=== PATIENT | female | born 1990 | race Caucasian/White ===

== ENCOUNTER 2016-05-25 23:49 | Emergency (ER) | payer OTHER ==
--- NOTE | ~2016-05-25 | EKG ---
PATIENT: JAZMIN BEAN UNIT #: [id number] Ventricular Rate: 121 BPM Atrial Rate: 121 BPM P-R Interval: 130 ms QRS Duration: 80 ms Q-T Interval: 332 ms QTC Calculation(Bezet): 471 ms P [place]: 39 degrees Calculated R [place]: 46 degrees Calculated T [place]: 65 degrees Diagnosis Line: Sinus tachycardia with Premature atrial complexes Diagnosis Line: T wave abnormality, consider inferior ischemia Diagnosis Line: Abnormal ECG Diagnosis Line: When compared with ECG of 14-SEP-2015 05:40, Diagnosis Line: Premature atrial complexes are now Present Diagnosis Line: T wave inversion now evident in Inferior leads Diagnosis Line: Inverted T waves have replaced nonspecific T wave Diagnosis Line: abnormality in Lateral leads Diagnosis Line: Confirmed by JULIO PRESLEY MD ([id number]) on 05/27/2016 Diagnosis Line: 2:15:54 PM INTERPRETING MD: SAKINA MOON
--- NOTE | ~2016-05-25 | CR72 ---
[facility] A Service of [facility] RADIOLOGY TEXT RESULTS PATIENT: JAZMIN BEAN LOCATION: [facility] : 91 UNIT #: [id number] AGE: [address]: Lakeisha Ray MD SEX: F ORDER DR: [id number] [facility] [address] [place], [place] [address] [id number] MR#: [id number] Acc #: [id number] NAME: JAZMIN BEAN : 1990 SEX: F STUDY DATE/TIME: 05/25/2016 23:36 UNIT: [facility] ROOM: STUDY DESCRIPTION: CR Chest Single View Portable Attending Physician: Lakeisha Ray M.D. Ordering Physician: Lakeisha Ray M.D. Primary Care Physician: Inderjit Molina M.D. MEDICAL IMAGING REPORT This report is preliminary unless electronic signature is present EXAM Frontal chest 05/25/2016 INDICATION 26-year-old female with cough, dizzy, weak for 5 days, diabetes. TECHNIQUE Frontal chest compared with 09/11/2015. FINDINGS Cardiac silhouette unremarkable. Vascularity is normal. There is no dense consolidation or effusion on either side. No pneumothorax. Low lung volumes with some degree of bronchovascular crowding and probable atelectasis in the lower lung zone on the right. IMPRESSION Low lung volumes with some probable atelectatic change in the right greater than left lung bases but no effusion or dense consolidation. Dictated by... Júnior Mckinley M.D. THIS IS AN ELECTRONICALLY VERIFIED REPORT Júnior Mckinley M.D. at 05/26/2016 6:24 AM CHRIS/tom TD: 05/26/2016 06:08 JOB #: [id number] MEDICAL IMAGING REPORT Page 1 of 1 COPY
[2016-05-25 21:08] LABS: BASOPHIL# 0.1 X10e3 (0-0.3); BASOPHIL% 0.5 % (0-2.5); EOSINOPHIL# 0.4 X10e3 (0-0.7); EOSINOPHIL% 3.2 % (0.0-7.0); HEMOGLOBIN 9.2 gm/dL (12.0-16.0); LYMPHOCYTE# 2.1 X10e3 (1.0-3.5); LYMPHOCYTE% 18.7 % (17.0-45.0); MEAN CELL VOLUME 61.9 FL (83-96); MEAN CORPUSCULAR HEMOGLOBIN 18.3 PG (28-34); MEAN CORPUSCULAR HGB CONC 29.6 g/dL (30-36); MONOCYTE# 1.3 X10e3 (0-1.0); MONOCYTE% 11.7 % (3.0-12.0); NEUTROPHIL# 7.5 X10e3 (1.5-7.1); NEUTROPHIL% 65.9 % (40-75); PLATELET COUNT 257 X10e3 (140-420); RED BLOOD COUNT 5.01 X10e (3.90-5.30); RED CELL DISTRIBUTION WIDTH 21.9 % (11.0-15.5); WHITE BLOOD COUNT 11.4 X10e3 (4.0-10.5)
[2016-05-25 21:09] LABS: DIFF IND YES
[2016-05-25 21:30] LABS: ALBUMIN SERUM 3.8 g/dL (3.5-5.0); BILIRUBIN,TOTAL 0.5 mg/dL (0.2-2.0); CALCIUM SERUM 9.8 mg/dL (8.4-10.2); CREATININE SERUM 0.5 mg/dL (0.6-1.4); GLOM FILT RATE Estimated 134.5 mL/min (>60); PROTEIN TOTAL SERUM 8.7 g/dL (6.0-8.3)
[2016-05-25 21:32] LABS: BILIRUBIN,INDIRECT 0.4 mg/dL (0.0-0.9); POTASSIUM 2.7 mmol/L (3.5-5.1)
[2016-05-25 21:33] LABS: BILIRUBIN, DIRECT 0.1 mg/dL (0.0-0.2)
[2016-05-25 22:11] LABS: PLATELET ESTIMATE NORMAL (NORMAL)
[2016-05-25 22:12] LABS: HYPOCHROMIA SL; POIKILOCYTOSIS SL; TEAR DROP CELLS PRESENT
[2016-05-25 23:05] LABS: ARTERIAL BLD GAS O2 SATURATION 94.9 % (90.0-100.0); ARTERIAL BLOOD GAS CARBOXY HB 1.1 %sat (0.0-9.0); ARTERIAL BLOOD GAS MET HB 0.8 %sat (0.0-2.0); ARTERIAL BLOOD GAS PCO2 31.8 mmHg (35.0-45.0); ARTERIAL BLOOD GAS PO2 80.7 mmHg (80.0-100); ARTERIAL BLOOD GAS pH 7.428 (7.350-7.450)
[2016-05-25 23:06] LABS: ARTERIAL BLOOD GAS ART SITE RIGHT BRACHIAL; ARTERIAL DRAW? YES
[~2016-05-25 23:49] MED LIST: ALBUTEROL17 GM INH; APIDRA (NF100 UNITS/ SUBQ; APIDRA100 U/ML SUBQ; BACTRIM DS TABL1 TA1 PO; BACTRIM DS TABL1 TAB PO; BACTROBAN15 GM TOP; CLEOCIN PO; HUMALOG100 U/M2; HUMALOG100 U/ML; HUMALOG100 U/ML SUBQ; IBUPROFEN PO; LANTUS100 U/ML INJ; LANTUS100 U/ML SUBQ; LEVEMIR SUBQ; LEVEMIR100 U/ML SQ; LEVEMIR100 UNITS/ SQ; LEVEMIR100 UNITS/ SUBQ; MAG-OX 400400 MG PO; MEDROL4 MG/DOSE-; METOPROLOL TAR25 MG PO; NAPROSYN500 MG PO; NOVOLIN N100 U/M1 SQ; NOVOLIN N100 U/ML INJ; NOVOLOG100 U/M1 SQ; NOVOLOG100 U/ML INJ; NOVOLOG100 U/ML SUBQ; NOVOLOG100 UNITS/ INJ; NOVOLOG100 UNITS/ SUBQ; TUMS500 MG PO; [UNRECOGNIZED DRUG - OTHER] PO
[2016-05-26 00:28] LABS: URINE SOURCE CLEAN CATCH
[2016-05-26 00:31] LABS: URINE APPEARANCE CLOUDY; URINE BILIRUBIN NEG (NEG); URINE BLOOD 1+ (NEG); URINE COLOR YELLOW; URINE GLUCOSE 100 MG/DL (NEG); URINE KETONE TRACE (NEG); URINE LEUKOCYTE ESTERASE TRACE (NEG); URINE NITRATE NEG (NEG); URINE PROTEIN 2+ (NEG); URINE SPECIFIC GRAVITY 1.023 (1.003-1.035)
[2016-05-26 00:34] LABS: URBCS1 AUWI 0-2 /[HPF] (0-2); URINE BACTERIA AUWI NEG (NEGATIVE); URINE SQUAMOUS EPITHELIAL CELL OCC /[HPF]
[2016-05-26 00:45] LABS: CULTURE INDICATED? NO
[2016-05-26 00:46] LABS: URINE CRYSTALS CALCIUM OXALATE /[HPF]
[2016-05-26 02:57] LABS: INFLUENZA A NEG (NEG); INFLUENZA B NEG (NEG)
== END 2016-05-26 07:44 | disposition left against medical advice (07) ==
LOC: CED 23:49
PROVIDERS: Emergency Medicine
DX: E11.65 Type 2 diabetes mellitus with hyperglycemia (principal); E86.0 Dehydration; Z91.018 Allergy to other foods
CPT/HCPCS: 36415; 36600; 71010; 80048; 80076; 81003; 82803; 82947; 84703; 85025; 85379; 87040; 87804; 93005; 96361; 96374; 99284; J2405

== ENCOUNTER 2016-06-04 15:53 | Emergency (ER) | payer OTHER ==
--- NOTE | ~2016-06-04 | EKG ---
PATIENT: JAZMIN BEAN UNIT #: [id number] Ventricular Rate: 124 BPM Atrial Rate: 124 BPM P-R Interval: 120 ms QRS Duration: 72 ms Q-T Interval: 420 ms QTC Calculation(Bezet): 603 ms P [place]: 53 degrees Calculated R [place]: 49 degrees Calculated T [place]: 50 degrees Diagnosis Line: Sinus tachycardia Diagnosis Line: Nonspecific T wave abnormality Diagnosis Line: Abnormal ECG Diagnosis Line: When compared with ECG of 25-MAY-2016 23:55, Diagnosis Line: Premature atrial complexes are no longer Present Diagnosis Line: Nonspecific T wave abnormality has replaced Diagnosis Line: inverted T waves in Lateral leads Diagnosis Line: Confirmed by BERNA KENNEY MD ([id number]) on 06/05/2016 Diagnosis Line: 4:38:03 PM INTERPRETING MD: PABLITO MOON
--- NOTE | ~2016-06-04 | CR72 ---
[facility] A Service of [facility] RADIOLOGY TEXT RESULTS PATIENT: JAZMIN BEAN LOCATION: [facility] UNIT : 91 UNIT #: [id number] AGE: [address]: Elijah Pardo MD SEX: F ORDER DR: [id number] [facility] [address] [place], [place] [address] [id number] E MR#: [id number] Acc #: [id number] NAME: JAZMIN BEAN : 1990 SEX: F STUDY DATE/TIME: 06/04/2016 15:58 UNIT: [facility] ROOM: STUDY DESCRIPTION: CR Chest Single View Portable Attending Physician: Elijah Pardo M.D. Ordering Physician: Elijah Pardo M.D. Primary Care Physician: Inderjit Molina M.D. MEDICAL IMAGING REPORT This report is preliminary unless electronic signature is present EXAM Portable chest. DATE OF EXAM 06/04/2016 HISTORY Shortness of air and hypotension today. FINDINGS A single AP portable view of the chest shows both lungs to be clear. The heart is normal in size. The mediastinal contour is normal. No significant bone abnormalities are seen. IMPRESSION Negative/normal portable chest. Dictated by... Ferdinand Kaur M.D. THIS IS AN ELECTRONICALLY VERIFIED REPORT Ferdinand Kaur M.D. at 06/04/2016 11:23 PM DFAngeline/seamus TD: 06/04/2016 18:44 JOB #: [id number] MEDICAL IMAGING REPORT [facility] A Service of [facility] RADIOLOGY TEXT RESULTS PATIENT: JAZMIN BEAN LOCATION: [facility] UNIT : 91 UNIT #: [id number] AGE: [address]: Elijah Pardo MD SEX: F ORDER DR: Page 1 of 1 COPY
[2016-06-04 16:41] LABS: ARTERIAL BLD GAS O2 SATURATION 94.2 % (90.0-100.0); ARTERIAL BLOOD GAS CARBOXY HB 1.1 %sat (0.0-9.0); ARTERIAL BLOOD GAS MET HB 0.8 %sat (0.0-2.0); ARTERIAL BLOOD GAS PCO2 37.7 mmHg (35.0-45.0); ARTERIAL BLOOD GAS pH 7.395 (7.350-7.450)
[2016-06-04 16:43] LABS: ARTERIAL BLOOD GAS ALLEN TEST NORMAL; ARTERIAL BLOOD GAS ART SITE RIGHT RADIAL; ARTERIAL BLOOD GAS DELIVERY ROOM AIR; ARTERIAL DRAW? YES
[2016-06-04 17:42] LABS: BASOPHIL# 0.2 X10e3 (0-0.3); HEMATOCRIT 31.8 % (35.0-45.0); HEMOGLOBIN 9.2 gm/dL (12.0-16.0); LYMPHOCYTE# 1.1 X10e3 (1.0-3.5); MEAN CELL VOLUME 62.6 FL (83-96); MEAN CORPUSCULAR HGB CONC 28.8 g/dL (30-36); MEAN PLATELET VOLUME 8.3 FL (6.5-11.5); MONOCYTE# 0.9 X10e3 (0-1.0); MONOCYTE% 4.1 % (3.0-12.0); NEUTROPHIL# 19.7 X10e3 (1.5-7.1); NEUTROPHIL% 89.9 % (40-75); PLATELET COUNT 468 X10e3 (140-420); RED BLOOD COUNT 5.08 X10e (3.90-5.30); RED CELL DISTRIBUTION WIDTH 22.3 % (11.0-15.5); WHITE BLOOD COUNT 21.9 X10e3 (4.0-10.5)
[2016-06-04 17:43] LABS: DIFF IND YES
[2016-06-04 17:47] LABS: POC - CKMB <1.0 ng/mL (0.0-7.9); POC - TROPONIN <0.05 ng/mL (<=0.05)
[2016-06-04 17:53] LABS: URINE SOURCE CLEAN CATCH
[2016-06-04 18:01] LABS: URINE APPEARANCE CLOUDY; URINE BILIRUBIN NEG (NEG); URINE BLOOD TRACE (NEG); URINE COLOR DK YELLOW; URINE GLUCOSE >1000 MG/DL (NEG); URINE KETONE 2+ (NEG); URINE LEUKOCYTE ESTERASE 1+ (NEG); URINE NITRATE NEG (NEG); URINE PROTEIN 3+ (NEG)
[2016-06-04 18:02] LABS: PLATELET ESTIMATE NORMAL (NORMAL); POIKILOCYTOSIS MOD
[2016-06-04 18:03] LABS: MICROCYTOSIS MOD
[2016-06-04 18:05] LABS: CULTURE INDICATED? YES; URINE BACTERIA AUWI 2+ (NEGATIVE); URINE SQUAMOUS EPITHELIAL CELL MOD /[HPF]; UWBCS1 AUWI 25-50 (0-5)
[2016-06-04 18:26] LABS: AMPHETAMINE NEG (NEG); BARBITURATES NEG (NEG); BENZODIAZEPINES NEG (NEG); COCAINE NEG (NEG); MARIJUANA NEG (NEG); OPIATES NEG (NEG); TRICYCLIC ANTIDEPRESSANTS NEG (NEG); U METHADONE NEG (NEG)
[2016-06-04 18:48] LABS: ALBUMIN SERUM 3.7 g/dL (3.5-5.0); ALKALINE PHOSPHATASE 171 U/L (32-92); ALT (SGPT) 10 U/L (10-40); AST (SGOT) 13 U/L (10-42); BILIRUBIN,TOTAL 0.4 mg/dL (0.2-2.0); BLOOD UREA NITROGEN 12 mg/dL (9-23); CARBON DIOXIDE 23 mmol/L (22-31); CHLORIDE 105 mmol/L (100-111); CREATININE SERUM 0.8 mg/dL (0.6-1.4); GLOM FILT RATE Estimated 102.6 mL/min (>60); GLUCOSE FASTING 68 mg/dL (70-110); POTASSIUM 3.6 mmol/L (3.5-5.1); PROTEIN TOTAL SERUM 7.9 g/dL (6.0-8.3); SODIUM 141 mmol/L (135-145)
[2016-06-04 18:49] LABS: BILIRUBIN, DIRECT <0.1 mg/dL (0.0-0.2); BILIRUBIN,INDIRECT 0.3 mg/dL (0.0-0.9)
== END 2016-06-04 20:04 | disposition home or self-care (01) ==
LOC: CED 15:53
PROVIDERS: Emergency Medicine
DX: D72.829 Elevated white blood cell count, unspecified (principal); E86.0 Dehydration; E11.9 Type 2 diabetes mellitus without complications; F17.210 Nicotine dependence, cigarettes, uncomplicated; Z79.4 Long term (current) use of insulin
CPT/HCPCS: 36415; 36600; 71010; 80048; 80076; 80307; 81003; 82010; 82553; 82803; 82947; 84484; 84703; 85025; 87040; 87086; 93005; 96361; 96365; 96375; 99284; J0696; J2405

== ENCOUNTER 2016-07-21 19:10 | Inpatient (IN) | payer OTHER ==
--- NOTE | ~2016-07-21 | CR63 ---
[facility] A Service of [facility] RADIOLOGY TEXT RESULTS PATIENT: JAZMIN BEAN LOCATION: [facility] [id number] : [birth year] UNIT #: [id number] AGE: [address]: Ju Wright MD SEX: F ORDER DR: [id number] [facility] [address] [place], [place] [address] [id number] I MR#: [id number] Acc #: [id number] NAME: JAZMIN BEAN : 1990 SEX: F STUDY DATE/TIME: 07/22/2016 0:25 UNIT: [facility] ROOM: [id number] STUDY DESCRIPTION: CR Chest 2 View Attending Physician: Ju Wright M.D. Ordering Physician: Mikala Moraes A.P.R.N. Primary Care Physician: Inderjit Molina M.D. MEDICAL IMAGING REPORT This report is preliminary unless electronic signature is present EXAM Two-view chest INDICATION Diabetic ketoacidosis. Weakness. Two-day duration. FINDINGS PA and lateral views of the chest compared to 06/04/2016. Heart and mediastinal contours are unchanged. There is a moderate left pleural effusion with associated airspace opacity. There is a small right pleural effusion. IMPRESSION Moderate left pleural effusion and small right pleural effusion. Dictated by... Angel Pascual M.D. THIS IS AN ELECTRONICALLY VERIFIED REPORT Angel Pascual M.D. at 07/22/2016 2:13 AM DENISE/luciana TD: 07/22/2016 01:09 JOB #: [id number] MEDICAL IMAGING REPORT Page 1 of 1 COPY
--- NOTE | ~2016-07-21 | CO ---
Unit #: [id number] #: [id number] Patient: JAZMIN BEAN [id number] [address] [place], [place] [address] [id number] I MR#: [id number] NAME: JAZMIN BEAN ROOM: [facility] Age: 26 Sex: F Admission Date: 07/21/2016 : 1990 Attending Physician: Ju Wright M.D. Primary Care Physician: Inderjit Molina M.D. Consultation Date: 07/22/2016 CONSULTATION REPORT REASON FOR CONSULTATION Uncontrolled type 1 diabetes mellitus. HISTORY OF PRESENT ILLNESS This is a 26-year-old female with history of type 1 diabetes mellitus since the age of 6 years, history of diabetic ketoacidosis in the past. She came to the emergency room for not feeling well and high blood sugars. On her evaluation in the emergency room, she had blood sugars above 450. She had some ketones and she was dehydrated with hyponatremia, sodium of 130, and hemoglobin 9 with anemia. She was admitted to the unit bed and started on insulin drip. I have been asked to see the patient for further management. REVIEW OF SYSTEMS A 12-point review of systems was completed and is unremarkable except as noted in the HPI. The patient declined any nausea, vomiting, abdominal pain, diarrhea, bleeding per stool, or hematemesis. ALLERGIES None known. MEDICATIONS Lantus 15 units at bedtime and NovoLog 20 each meal. FAMILY HISTORY Noncontributory. SOCIAL HISTORY Declines any. PHYSICAL EXAMINATION GENERAL: She is lean and thin, awake, alert, oriented to time, place, and person. VITAL SIGNS: Temperature 97.9, pulse 90, respirations 16, and blood pressure 145/91. HEENT: EOMI. Pupils are equally reactive to light. NECK: Supple. No thyromegaly noted. CHEST: Good air entry. CVS: Regular rhythm. No murmurs. ABDOMEN: Soft, nontender. Bowel sounds positive. EXTREMITIES: No edema. Ulcers are noted. DIAGNOSTIC STUDIES LABORATORY RESULTS: Reviewed. Sodium is 137, potassium 3.3, chloride is Unit #: [id number] #: [id number] Patient: JAZMIN BEAN 103, CO2 is 26, calcium 8.2, albumin is low at 2.9. A1c last one was 10.9 on 07/21/2016. Positive ketones. ASSESSMENT 1. Type 1 diabetes mellitus, uncontrolled. 2. Microcytic anemia. 3. Hypokalemia. 4. Dehydration, improved. PLAN The patient's blood sugars have significantly improved. She has been tolerating the liquids very well. We will discontinue insulin drip. Start Levemir 10 units subcu b.i.d., NovoLog 5 units each meal with supplemental insulin 1 unit for every 50 above 150. Accu-Cheks a.c. and h.s. Discontinue insulin drip and IV fluids. Advance diet. Thanks again for consultation. Dictated by... Pooja Johnston/celena TD: 07/22/2016 23:10 JOB #: [id number] CONSULTATION REPORT Page 1 of 1 X Drew Diaz MD X CONSULTATION REPORT
--- NOTE | ~2016-07-21 | A ---
[facility] Nutrition Therapy DATE: 07/22/16 Patient: JAZMIN BEAN Physician: DAWNA Address: [address] Room/Bed: [address], Zip: [place] [address] Admit Date: 07/21/16 Date of : [birth year] Height: 5 5 Weight: 111 50.5 NUTRITIONAL ASSESSMENT: REASON: DKA Dx, low BMI, NPO in ICU 26 yo female admitted for DKA PMH: Type 1 DM (diagnosed at age 6), Pre-ecplampsia, HTN Anthropometrics: Ht: 65" (pt confirmed) Wt: 50.5 kg BMI: 18.5 IBW: 56.8 kg, 89% IBW Labs: BUN <5 Creat 0.3 Alb 2.9 Accuchecks 90-334 HgbA1C 10.9 Meds: Novolin, D5%, D50%, zofran I/O & Bowel function: none available, last BM 07/22 Skin Integrity: Rash BLE/ ankles Edema: none noted Estimated Nutrition Needs: Increased d/t low body weight Diet: NPO except water and diet drinks Assessment: Chart reviewed, events noted. Pt admitted for DKA, with h/o type 1 DM and previous admissions for DKA. RN reports that the pt has been admitted to the hospital three times this month for related issues, high blood sugar d/t illness. Pt presents underweight with a BMI of 18.5, and is 89% of her IBW. RD spoke with the pt and her father at bedside. Pt was drowsy at time of visit. Pt's father reports that she has lost weight, and used to weigh ~120#. Pt's admission weight is 111#, indicating ~19# weight loss (in unknown time frame). RD stressed the importance of adequate protein-energy intake, and the pt's father reports that the pt has not been receiving her food stamps. RD will discuss with RN. Pt did not feel up to diet education at this time. Per previous admission nutrition assessments for DKA, the pt has denied diet education in the past. RD informed pt that we would return for diet education. Pt is agreeable to Glucerna once diet advances, and reports that she is hungry. Dx: 1) Impaired glycemic control RT possibly food insecurity, poor dietary habits, lack of nutrition-related knowledge AEB DKA, accuchecks 90-334. 2) Unplanned weight loss RT possibly food insecurity AEB BMI 18.5, 89% IBW. Intervention: [facility] Nutrition Therapy DATE: 07/22/16 Patient: JAZMIN BEAN Physician: DAWNA Address: [address] [place] [address] Room/Bed: [address], Zip: [place] [address] Admit Date: 07/21/16 Date of : [birth year] Height: 5 5 Weight: 111 50.5 1. Consistent carbohydrate diet education once appropriate 2. Advance to CCD once insulin drip discontinued 3. Glucerna BID once diet advances Monitoring, Evaluation and Goals: 1. Improve labs; glucose, A1C 2. Oral intake; diet advancement, tolerate >50-75% of meals once diet adv 3. Weight; prevent further weight loss, promote gradual weight gain towards IBW Recommendations: 1. Once insulin drip is discontinued, advance the pt to a consistent carbohydrate diet as tolerated. 2. Glucerna (vanilla) BID for supplemental nutrition once diet advances. 3. RD to return for CCD education once appropriate. 4. Pt would benefit from seeing an outpatient RD for follow up and accounability regarding DM diet compliance. Health Departments also provide free classes. 5. Consult social services manager/ care management regarding the pt's food insecurity. Pt is no longer receiving food stamps. Pt is at mild-moderate nutritional risk. RD will follow hospital course per protocol. Respectfully, JOSEPH ROBINS RD, LD Food and Nutritional Services [facility] cc: client file
--- NOTE | ~2016-07-21 | DS ---
Unit #: [id number] #: [id number] Patient: JAZMIN BEAN [id number] [address] [place], [place] [address] [id number] I MR#: [id number] NAME: JAZMIN BEAN ROOM: 453 Age: 26 Sex: F Admission Date: 07/21/2016 : 1990 Discharge Date: 07/24/2016 Attending Physician: Ju Wright M.D. Primary Care Physician: Inderjit Molina M.D. DISCHARGE SUMMARY PRINCIPAL DISCHARGE DIAGNOSES 1. Diabetic ketoacidosis. 2. Type 1 diabetes mellitus. 3. Mixed anemia with iron deficiency and B12 deficiency. 4. Bilateral pleural effusions. 5. Bilateral lower extremity rash. LEATHER POL[employer]ER Dr. Diaz, Endocrinology. PROCEDURE Transfusion of one unit of packed RBCs on July 23, 2016. REASON FOR HOSPITALIZATION/HOSPITAL COURSE The patient is a 26-year-old white female with a history of type 1 diabetes mellitus who presented to the emergency room with bilateral lower extremity rash and DKA. Patient was admitted to the ICU. She was started on DKA protocol. Endocrinology was consulted. She was treated topically with hydrocortisone and Bactroban for the rash. She was discovered to be anemic. Upon further workup, her iron and B12 were low. Her hemoglobin fell to 7.9 on the , and she was typed, crossmatched, and transfused one unit. Stool for occult blood was ordered but not obtained during this admission. Again, her B12 and iron were low. Currently, her blood sugars are good. Her potassium is 4.9. Her magnesium is 1.5 and will be replaced per protocol prior to discharge. CBC is normal except for a hemoglobin of 9.2. Followup chest x-ray showed no change in bilateral pleural effusions. Room air O2 saturations are 99%, and I feel that it is probably likely that her low hemoglobin, as well as albumin. In any case, she will be discharged home. She will be given a dose of B12 IM prior to discharge. FOLLOWUP She is to follow up with Dr. Martines for the rash, follow up with Dr. Diaz for her diabetes, and follow up with Dr. Molina in one week. DIET She is on a constant carbohydrate diet. CURRENT MEDICATIONS 1. Tylenol 650 q.6 p.r.n. 2. Hydrocortisone apply to affected areas q.6 hours. 3. Bactroban topically b.i.d. to affected areas. 4. Benadryl 25 mg p.o. q.6 hours p.r.n. for itching. Unit #: [id number] #: [id number] Patient: JAZMIN BEAN 5. Levemir 10 units subcutaneous b.i.d. 6. NovoLog 5 units subcutaneous a.c. 7. B12 at 1000 mcg sublingual daily. 8. Ferrous gluconate 324 mg 1 p.o. b.i.d. after meals. Dictated by... Pooja Navarro/mary ellen TD: 07/24/2016 22:18 JOB #: [id number] DISCHARGE SUMMARY Page 1 of 1 X Leo Hughes MD X DISCHARGE SUMMARY
--- NOTE | ~2016-07-21 | HP ---
Unit #: [id number] #: [id number] Patient: ROSI STANFORD [id number] [address] [place], [place] [address] [id number] I MR#: [id number] NAME: ROSI STANFORD ROOM: [facility] Age: 26 Sex: F Admission Date: 07/21/2016 : 1990 Attending Physician: Ju Wright M.D. Primary Care Physician: Inderjit Molina M.D. HISTORY AND PHYSICAL ADMISSION DIAGNOSES 1. Diabetic ketoacidosis. 2. Insulin dependent diabetes. 3. Anemia. 4. History of asthma. 5. Lower extremity dermatitis. 6. Questionable methicillin-resistant Staphylococcus aureus infection. HISTORY OF PRESENT ILLNESS Ms. Rosi Stanford is a 26-year-old female well known to us secondary to prior similar hospitalizations for DKA. This time around patient also was seen in the emergency room secondary to a right lower extremity rash; however, initial evaluation found her in DKA. Patient was started on the IV insulin per DKA protocol, admitted to ICU. She is status post evaluation per Dr. Diaz and she is scheduled to be off of the insulin drip here pretty soon since her gap is closing and last BMP showed her bicarb at 26. She has no other complaints, states that she had noticed the rash two to three days ago, denies any fever or chills, denies any shortness of air, dyspnea, headache, dizziness, chest pain, syncope, presyncope, nausea, vomiting, diarrhea or abdominal pain so 12-point review of systems on this patient is basically negative except as above. PAST MEDICAL HISTORY Past medical history is significant for history of insulin dependent diabetes. PAST SURGICAL HISTORY Past surgical history is significant for I/D for the boil and superficial skin infection, also history of . HOME MEDICATIONS She was taking Humalog and Lantus at home. ALLERGIES No known drug allergies. SOCIAL HISTORY She is an active smoker, denies any illicit drugs or alcohol. FAMILY HISTORY Unremarkable. PHYSICAL EXAMINATION Unit #: [id number] #: [id number] Patient: ROSI STANFORD GENERAL: Patient is a 26-year-old female not in acute distress. VITAL SIGNS: BP 141/93. Heart rate 104. Respirations 16. Temperature 97.9. HEENT: Head is atraumatic. Pupils equal, round and reactive to light and accommodation. Extraocular muscles are intact. Oropharynx clear. NECK: Neck is supple. No mass. No JVD. No bruits. CHEST: Clear to auscultation bilaterally. CARDIOVASCULAR: S1, S2. No murmurs. ABDOMEN: Soft, nontender, nondistended. LOWER EXTREMITIES: Without any cyanosis, clubbing or edema. SKIN: On the skin exam patient does have multiple raised macular rash throughout the posterior calf on the right and posterior thigh. NEUROLOGIC: Neurologically patient is grossly intact, without any focal deficits. Alert and oriented and answering questions appropriately. DIAGNOSTIC STUDIES LABORATORY: Chemistry: The last BMP shows a potassium of 3.3, BUN and creatinine 5 and 0.4, blood glucose of 57, calcium 8.2; hemoglobin and hematocrit 7.5 and 26, white count 7.1. ASSESSMENT AND PLAN 1. Diabetic ketoacidosis: Continue per Dr Diaz. She is about ready to be transitioned to a subcu insulin (1) . Continue fluids per DKA protocol. Replace electrolytes per DKA protocol. 2. Insulin dependent diabetes: Per Dr. Diaz. 3. Anemia: Monitor hemoglobin and hematocrit. Consider hematology evaluation. 4. History of asthma in the past. 5. Nonspecific dermatitis, questionable superficial methicillin-resistant Staphylococcus aureus infection: Will treat with some Bactroban ointment and I will ask Dr. Martines from dermatology to see. 6. Continue current GI and DVT prophylaxis. I will hold the Lovenox secondary to anemia and put her on some Protonix and SCDs. Dictated by Dakotah Cornejo M.D. OC/cf TD: 07/22/2016 21:56 JOB #: [id number] HISTORY AND PHYSICAL Page 1 of 1 X Dakotah Cornejo MD HISTORY AND PHYSICAL
--- NOTE | ~2016-07-21 | CR72 ---
[facility] A Service of [facility] RADIOLOGY TEXT RESULTS PATIENT: JAZMIN BEAN LOCATION: [place] [address] : [birth year] UNIT #: [id number] AGE: [address]: Ju Wright MD SEX: F ORDER DR: [id number] [facility] [address] [place], [place] [address] [id number] I MR#: [id number] #: [id number] NAME: JAZMIN BEAN : 1990 SEX: F STUDY DATE/TIME: 07/23/2016 13:40 UNIT: [facility] ROOM: [facility] STUDY DESCRIPTION: CR Chest Single View Portable Attending Physician: Ju Wright M.D. Ordering Physician: Leo Hughes M.D. Primary Care Physician: Inderjit Molina M.D. MEDICAL IMAGING REPORT This report is preliminary unless electronic signature is present EXAM Portable chest, 07/23/2016 HISTORY Shortness of breath and chest congestion for 2 weeks. Smoking history for 5 years. Followup bilateral pleural effusions. Diabetic ketoacidosis and generalized weakness. FINDINGS The cardiac and mediastinal structures are stable compared with 07/22/2016. There are bilateral pleural effusions with bibasilar infiltrates or atelectasis. The upper lungs are clear. No pneumothorax. IMPRESSION Bilateral pleural effusions with bibasilar infiltrates or atelectasis. Dictated by... Burak Blanco M.D. THIS IS AN ELECTRONICALLY VERIFIED REPORT Burak Blanco M.D. at 07/24/2016 2:12 PM ABDIAZIZ/sarah TD: 07/23/2016 16:17 JOB #: [id number] MEDICAL IMAGING REPORT Page 1 of 1 COPY
--- NOTE | ~2016-07-21 | EKG ---
PATIENT: JAZMIN BEAN UNIT #: [id number] Ventricular Rate: 112 BPM Atrial Rate: 112 BPM P-R Interval: 146 ms QRS Duration: 70 ms Q-T Interval: 348 ms QTC Calculation(Bezet): 475 ms P [place]: 34 degrees Calculated R [place]: 36 degrees Calculated T [place]: 69 degrees Diagnosis Line: Sinus tachycardia Diagnosis Line: Nonspecific T wave abnormality Diagnosis Line: Abnormal ECG Diagnosis Line: When compared with ECG of 04-JUN-2016 16:01, Diagnosis Line: Nonspecific T wave abnormality, worse in Diagnosis Line: Anterolateral leads Diagnosis Line: Confirmed by LEELEE ISAAC MD ([id number]) on Diagnosis Line: 07/22/2016 1:36:49 PM INTERPRETING MD: MARLIN MOON
[2016-07-21 21:05] LABS: URINE SOURCE CLEAN CATCH
[2016-07-21 21:10] LABS: URINE APPEARANCE CLEAR; URINE BILIRUBIN NEG (NEG); URINE BLOOD TRACE (NEG); URINE COLOR YELLOW; URINE GLUCOSE >1000 MG/DL (NEG); URINE KETONE 3+ (NEG); URINE LEUKOCYTE ESTERASE NEG (NEG); URINE NITRATE NEG (NEG); URINE PROTEIN TRACE (NEG); URINE SPECIFIC GRAVITY 1.035 (1.003-1.035); URINE UROBILINOGEN 0.2 MG/DL (NEG)
[2016-07-21 21:12] LABS: URINE BACTERIA AUWI NEG (NEGATIVE); URINE SQUAMOUS EPITHELIAL CELL NONE SEEN /[HPF]; UWBCS1 AUWI 0-2 (0-5)
[2016-07-21 21:15] LABS: CULTURE INDICATED? NO
[2016-07-21 21:23] LABS: BASOPHIL# 0.1 X10e3 (0-0.3); BASOPHIL% 0.8 % (0-2.5); EOSINOPHIL# 0.3 X10e3 (0-0.7); EOSINOPHIL% 3.2 % (0.0-7.0); HEMOGLOBIN 9.7 gm/dL (12.0-16.0); LYMPHOCYTE# 1.5 X10e3 (1.0-3.5); LYMPHOCYTE% 16.9 % (17.0-45.0); MEAN CELL VOLUME 65.5 FL (83-96); MEAN CORPUSCULAR HEMOGLOBIN 19.3 PG (28-34); MEAN CORPUSCULAR HGB CONC 29.5 g/dL (30-36); MEAN PLATELET VOLUME 7.5 FL (6.5-11.5); MONOCYTE# 0.8 X10e3 (0-1.0); MONOCYTE% 8.5 % (3.0-12.0); NEUTROPHIL# 6.2 X10e3 (1.5-7.1); NEUTROPHIL% 70.6 % (40-75); PLATELET COUNT 476 X10e3 (140-420); RED BLOOD COUNT 5.04 X10e (3.90-5.30); WHITE BLOOD COUNT 8.8 X10e3 (4.0-10.5)
[2016-07-21 21:25] LABS: DIFF IND YES
[2016-07-21 22:15] LABS: ALBUMIN SERUM 2.9 g/dL (3.5-5.0); BETA HYDROXYBUTYRATE 3.7 MMOL/L (0.02-0.27); BILIRUBIN, DIRECT 0.1 mg/dL (0.0-0.2); BILIRUBIN,INDIRECT 1.5 mg/dL (0.0-0.9); BILIRUBIN,TOTAL 1.6 mg/dL (0.2-2.0); BUN/CREATININE RATIO 13.33; CALCIUM SERUM 8.8 mg/dL (8.4-10.2); CREATININE SERUM 0.6 mg/dL (0.6-1.4); GLOM FILT RATE Estimated 126.7 mL/min (>60); POTASSIUM 4.5 mmol/L (3.5-5.1); PROTEIN TOTAL SERUM 8.2 g/dL (6.0-8.3)
[2016-07-21 22:19] LABS: PLATELET ESTIMATE NORMAL (NORMAL)
[2016-07-21 22:20] LABS: HYPOCHROMIA SL; SPHEROCYTE SL
[2016-07-21 22:21] LABS: POLYCHROMASIA SL
[2016-07-22 00:11] LABS: ARTERIAL BLD GAS O2 SATURATION 78.8 % (90.0-100.0); ARTERIAL BLOOD GAS CARBOXY HB 1.8 %sat (0.0-9.0); ARTERIAL BLOOD GAS MET HB 0.7 %sat (0.0-2.0)
[2016-07-22 00:12] LABS: ARTERIAL BLOOD GAS PO2 49.1 mmHg (80.0-100); ARTERIAL DRAW? NO
[2016-07-22 01:38] LABS: CALCIUM SERUM 7.8 mg/dL (8.4-10.2); CREATININE SERUM 0.4 mg/dL (0.6-1.4); GLOM FILT RATE Estimated 144.8 mL/min (>60)
[2016-07-22] MEDS ORDERED: HUMALOG100 UNIT/2 SUBQ (02:06)
[2016-07-22] MEDS ORDERED: LANTUS100 U/ML SUBQ (02:07)
[2016-07-22] MEDS ORDERED: [UNRECOGNIZED DRUG - OTHER] (02:07)
[2016-07-22 06:08] LABS: CALCIUM SERUM 8.1 mg/dL (8.4-10.2); CARBON DIOXIDE 25 mmol/L (22-31); CHLORIDE 104 mmol/L (100-111); CREATININE SERUM 0.3 mg/dL (0.6-1.4); GLOM FILT RATE Estimated 159.2 mL/min (>60); GLUCOSE FASTING 137 mg/dL (70-110); POTASSIUM 3.1 mmol/L (3.5-5.1); SODIUM 138 mmol/L (135-145)
[2016-07-22 06:09] LABS: BLOOD UREA NITROGEN <5 mg/dL (9-23); BUN/CREATININE RATIO 16.66
[2016-07-22 11:38] LABS: HEMATOCRIT 25.3 % (35.0-45.0); MEAN CELL VOLUME 65.1 FL (83-96); MEAN CORPUSCULAR HEMOGLOBIN 19.2 PG (28-34); MEAN CORPUSCULAR HGB CONC 29.5 g/dL (30-36); MEAN PLATELET VOLUME 7.4 FL (6.5-11.5); RED BLOOD COUNT 3.89 X10e (3.90-5.30); RED CELL DISTRIBUTION WIDTH 21.9 % (11.0-15.5); WHITE BLOOD COUNT 6.8 X10e3 (4.0-10.5)
[2016-07-22 11:39] LABS: HEMOGLOBIN 7.5 gm/dL (12.0-16.0)
[2016-07-22 12:11] LABS: BLOOD UREA NITROGEN <5 mg/dL (9-23); BUN/CREATININE RATIO 16.66; CALCIUM SERUM 8.1 mg/dL (8.4-10.2); CARBON DIOXIDE 25 mmol/L (22-31); CHLORIDE 103 mmol/L (100-111); CREATININE SERUM 0.3 mg/dL (0.6-1.4); GLOM FILT RATE Estimated 159.2 mL/min (>60); GLUCOSE FASTING 106 mg/dL (70-110); POTASSIUM 3.6 mmol/L (3.5-5.1); SODIUM 136 mmol/L (135-145)
[2016-07-22 16:27] LABS: CALCIUM SERUM 8.2 mg/dL (8.4-10.2); CARBON DIOXIDE 26 mmol/L (22-31); CHLORIDE 103 mmol/L (100-111); CREATININE SERUM 0.4 mg/dL (0.6-1.4); GLOM FILT RATE Estimated 144.8 mL/min (>60); GLUCOSE FASTING 57 mg/dL (70-110); HEMOGLOBIN 7.5 gm/dL (12.0-16.0); MEAN CELL VOLUME 65.7 FL (83-96); MEAN CORPUSCULAR HEMOGLOBIN 19.1 PG (28-34); MEAN PLATELET VOLUME 7.4 FL (6.5-11.5); POTASSIUM 3.3 mmol/L (3.5-5.1); RED BLOOD COUNT 3.95 X10e (3.90-5.30); RED CELL DISTRIBUTION WIDTH 21.9 % (11.0-15.5); SODIUM 137 mmol/L (135-145); WHITE BLOOD COUNT 7.1 X10e3 (4.0-10.5)
[2016-07-22 16:28] LABS: BLOOD UREA NITROGEN <5 mg/dL (9-23)
[2016-07-23 04:57] LABS: BASOPHIL# 0.1 X10e3 (0-0.3); BASOPHIL% 0.8 % (0-2.5); EOSINOPHIL# 0.5 X10e3 (0-0.7); EOSINOPHIL% 6.6 % (0.0-7.0); HEMATOCRIT 26.7 % (35.0-45.0); HEMOGLOBIN 7.9 gm/dL (12.0-16.0); LYMPHOCYTE# 1.7 X10e3 (1.0-3.5); LYMPHOCYTE% 23.5 % (17.0-45.0); MEAN CELL VOLUME 65.7 FL (83-96); MEAN CORPUSCULAR HEMOGLOBIN 19.4 PG (28-34); MEAN CORPUSCULAR HGB CONC 29.5 g/dL (30-36); MEAN PLATELET VOLUME 7.7 FL (6.5-11.5); MONOCYTE# 0.6 X10e3 (0-1.0); MONOCYTE% 7.9 % (3.0-12.0); NEUTROPHIL# 4.3 X10e3 (1.5-7.1); NEUTROPHIL% 61.2 % (40-75); PLATELET COUNT 433 X10e3 (140-420); RED BLOOD COUNT 4.07 X10e (3.90-5.30); RED CELL DISTRIBUTION WIDTH 22.8 % (11.0-15.5)
[2016-07-23 04:59] LABS: DIFF IND NO
[2016-07-23 11:17] LABS: CALCIUM SERUM 8.3 mg/dL (8.4-10.2); CARBON DIOXIDE 26 mmol/L (22-31); CHLORIDE 102 mmol/L (100-111); CREATININE SERUM 0.5 mg/dL (0.6-1.4); GLOM FILT RATE Estimated 134.5 mL/min (>60); GLUCOSE FASTING 159 mg/dL (70-110); POTASSIUM 3.9 mmol/L (3.5-5.1); SODIUM 137 mmol/L (135-145)
[2016-07-23 11:18] LABS: BLOOD UREA NITROGEN <5 mg/dL (9-23)
[2016-07-23 14:49] LABS: IRON SERUM 8 ug/dL (28-170); TOTAL IRON BINDING CAPACITY 325 ug/dL (269-535); TRANSFERRIN 232 mg/dL (192-382); TRANSFERRIN SATURATION 2 % (20-50)
[2016-07-23 15:06] LABS: FOLATE (FOLIC ACID) 13.4 ng/mL (>5.8)
[2016-07-24 03:52] LABS: BASOPHIL% 0.4 % (0-2.5); EOSINOPHIL# 0.4 X10e3 (0-0.7); EOSINOPHIL% 4.8 % (0.0-7.0); HEMATOCRIT 30.9 % (35.0-45.0); HEMOGLOBIN 9.2 gm/dL (12.0-16.0); LYMPHOCYTE# 1.5 X10e3 (1.0-3.5); LYMPHOCYTE% 16.5 % (17.0-45.0); MEAN CELL VOLUME 67.5 FL (83-96); MEAN CORPUSCULAR HGB CONC 29.7 g/dL (30-36); MONOCYTE# 0.9 X10e3 (0-1.0); MONOCYTE% 9.6 % (3.0-12.0); NEUTROPHIL# 6.3 X10e3 (1.5-7.1); NEUTROPHIL% 68.7 % (40-75); PLATELET COUNT 378 X10e3 (140-420); RED BLOOD COUNT 4.58 X10e (3.90-5.30); RED CELL DISTRIBUTION WIDTH 23.6 % (11.0-15.5); WHITE BLOOD COUNT 9.2 X10e3 (4.0-10.5)
[2016-07-24 03:54] LABS: DIFF IND NO
[2016-07-24] MEDS ORDERED: TYL325 PO (10:29)
[2016-07-24] MEDS ORDERED: HYDROCORTISON28.4 G5 TD (10:30)
[2016-07-24] MEDS ORDERED: BACTROBAN15 GM TOP (10:33)
[2016-07-24] MEDS ORDERED: DIPHENYDRAMINE25 MG PO (10:34)
[2016-07-24] MEDS ORDERED: LEVEMIR100 UNITS/ SUBQ (10:39)
[2016-07-24] MEDS ORDERED: NOVOLOG100 U/ML SUBQ (10:41)
[2016-07-24] MEDS ORDERED: [UNRECOGNIZED DRUG - OTHER] (10:43)
[2016-07-24] MEDS ORDERED: FERROUS GLUCON324 M1 PO (10:44)
[2016-07-24] MEDS ORDERED: VITAMIN B-121000 MC1 SL (10:45)
== END 2016-07-24 12:21 | disposition home or self-care (01) | DRG 638 ==
LOC: CFTX 19:10 → CED 19:10 → CFTX 21:36 → CEDOF 23:00 → CICCU3 23:00 → CEDOF 23:30 → CED 23:30 → CICCU3 07-22 07:45 → CEDOF 07-22 07:45 → C4B 07-23 15:30
PROVIDERS: Hospitalist; Internal Medicine; Nurse Practitioner; Physician Assistant Medical
PROC: 30233N1 Transfusion of Nonautologous Red Blood Cells into Peripheral Vein, Percutaneous Approach (ICD-10-PCS; principal; 2016-07-23)
PROC: 3E0234Z Introduction of Serum, Toxoid and Vaccine into Muscle, Percutaneous Approach (ICD-10-PCS; 2016-07-24)
DX: E10.10 Type 1 diabetes mellitus with ketoacidosis without coma (principal); E87.1 Hypo-osmolality and hyponatremia; D51.9 Vitamin B12 deficiency anemia, unspecified; D63.8 Anemia in other chronic diseases classified elsewhere; E86.0 Dehydration; L30.9 Dermatitis, unspecified; F17.210 Nicotine dependence, cigarettes, uncomplicated; J45.909 Unspecified asthma, uncomplicated; Z79.4 Long term (current) use of insulin
CPT/HCPCS: 36415; 71010; 71020; 80048; 80076; 81003; 82010; 82150; 82607; 82728; 82746; 82803; 82947; 83036; 83540; 83550; 83690; 83735; 84100; 84132; 84703; 85025; 85027; 86850; 86900; 86901; 86923; 87040; 90732; 93005; 96360; 99285; G0009; J1650; J1815; J3420; J3475; P9016